=== PATIENT | female | born 2000 | race Caucasian/White ===

== ENCOUNTER 2021-04-05 15:27 | Emergency (ER) | payer MEDICAID, SELFPAY ==
[~2021-04-05] VITALS: Ht 160 cm; Wt 49.9 kg
[2021-04-05 15:27] VITALS: BP_SYST 118
[2021-04-05 16:37] VITALS: BP_SYST 118
== END 2021-04-05 16:37 | disposition home or self-care (01) ==
LOC: SED 15:27
DX: J02.9 Acute pharyngitis, unspecified (principal); Z20.822 Contact with and (suspected) exposure to COVID-19
CPT/HCPCS: 87426; 99283; C9803; U0003; 36415